=== PATIENT | female | born 1950 | race Two or more races ===

== ENCOUNTER 2020-09-08 11:02 | Outpatient (CLI) | payer OTHER | END 2020-09-08 11:05 | disposition home or self-care (01) | LOC: LAB 11:02 | PROVIDERS: ATTEND Radiology Diagnostic Radiology | DX: Z51.81 Encounter for therapeutic drug level monitoring (principal); R22.1 Localized swelling, mass and lump, neck ==

== ENCOUNTER 2020-09-14 08:45 | Outpatient (CLI) | payer OTHER | END 2020-09-14 08:54 | disposition home or self-care (01) | LOC: TOM 08:45 | PROVIDERS: ATTEND Internal Medicine | DX: R22.1 Localized swelling, mass and lump, neck (principal); I10 Essential (primary) hypertension | CPT/HCPCS: 70491; 71046; Q9965 ==